=== PATIENT | male | born 1960 | race African-American/Black ===

== ENCOUNTER 2017-09-26 12:25 | Outpatient (CLI) | payer MEDICARE | END 2017-09-26 12:26 | disposition home or self-care (01) | LOC: BICRAD 12:25 | PROVIDERS: ATTEND Internal Medicine | DX: M47.27 Other spondylosis with radiculopathy, lumbosacral region (principal); M54.9 Dorsalgia, unspecified | CPT/HCPCS: 72040; 72100 ==

== ENCOUNTER 2017-12-06 08:02 | Outpatient (CLI) | payer MEDICARE, MEDICAID | END 2017-12-06 08:03 | disposition home or self-care (01) | LOC: BICMRI 08:02 | PROVIDERS: ATTEND Neurological Surgery | DX: M47.892 Other spondylosis, cervical region (principal); Q76.2 Congenital spondylolisthesis; M51.26 Other intervertebral disc displacement, lumbar region; M99.83 Other biomechanical lesions of lumbar region; M99.81 Other biomechanical lesions of cervical region; M48.8X2 Other specified spondylopathies, cervical region | CPT/HCPCS: 72141; 72148 ==

== ENCOUNTER 2018-03-11 18:02 | Inpatient (IN) | payer MEDICARE, MEDICAID ==
[2018-03-11 18:37] LABS: Bilirubin Negative (Negative); Blood, Urine Trace (Negative); Clarity CLEAR (Clear); Glucose, Urine (Dipstick) >=1000 mg/dL (Negative); Leukocyte Negative (Negative); Nitrite Negative (Negative); Protein, Urine (Dipstick) Negative (Neg-Trace); Specific Gravity, Urine 1.027 (1.002-1.036); Urobilinogen 0.2 mg/dL (0.2-1.0)
[2018-03-11 18:40] LABS: Bacteria/HPF None Seen HPF (None Seen); Hyaline Casts/LPF 0-3 HYALINE CAST LPF (0-3 Hyaline); RBC/HPF 0-3 HPF (0-3); Squamous Epithelial None Seen HPF (0-3); WBC/HPF None Seen HPF (0-3)
[2018-03-11 19:05] LABS: #Lymphocytes 0.5 thou/uL (1.20-3.40); #Monocytes 0.2 thou/uL (0.11-0.59); #Neutrophils 1.5 thou/uL (1.40-6.50); %Basophils 0.5 % (0.0-1.0); %Eosinophils 0.9 % (0.0-10.0); %Lymphocytes 22.8 % (21.0-51.0); %Monocytes 6.8 % (0.0-10.0); Mean Corpuscular HGB CONC 33.6 g/dL (32.0-36.0); Mean Corpuscular Hemoglobin 28.1 pg (27.0-31.0); Mean Corpuscular Volume 83.9 fL (78.0-98.0); Mean Platelet Volume 12.6 fL (7.4-10.4); Platelet Count 167 thou/uL (130-400); Red Blood Cell (RBC) Count 4.61 mill/uL (4.70-6.10); White Blood Cell (WBC) Count 2.2 thou/uL (4.8-10.8)
[2018-03-11 19:09] LABS: CKMB 0.6 ng/mL (0-6.6); Troponin I Less than 0.010 ng/mL (< 0.028)
[2018-03-11 20:18] LABS: Base Excess-Venous -6.7 mmol/L (0 (+/- 2.5)); Bicarbonate (HCO3v) 18.2 mmol/L (1.0-85.0); CO2 Tension (PvCO2) 34.3 mmHg (41.0-51.0); Calcium, Ionized 1.14 mmol/L (1.12-1.32); Hemoglobin - Calc 15.7 g/dL (12.0-18.0); Lactate 1.11 mmol/L (0.50-2.20); O2 Tension (PvO2) 63.4 mmHg (35.0-45.0); Potassium 5.5 mmol/L (3.4-4.7); T. Carbon Dioxide 19.2 mmol/L (1.0-85.0); pH (Venous) 7.333 (7.35-7.45); vO2 Saturation-calc 90.6 % (94-98)
[2018-03-11 21:05] LABS: Albumin 3.8 g/dL (3.5-5.0); Bilirubin, Total 0.6 mg/dL (0.2-1.2)
[2018-03-11 21:07] LABS: Calc. Creatinine Clearance 0 mL/min (70-130); Estimated GFR-MDRD 61
[2018-03-11 21:08] LABS: Chloride 98 mmol/L (98-107); Glucose 450 mg/dL (70-105); Sodium 127 mmol/L (136-145)
[2018-03-11 21:09] LABS: BUN (Urea Nitrogen) 19 mg/dL (8.4-25.7); Carbon Dioxide 12 mmol/L (22-29)
[2018-03-11 21:10] LABS: Calcium 8.5 mg/dL (7.8-10.44); Globulin 4.7 g/dL (2.4-3.5); Protein, Total 8.5 g/dL (6.0-8.3)
[2018-03-11 21:11] LABS: Alkaline Phosphatase 71 U/L (40-150)
[2018-03-11 21:12] LABS: ALT (SGPT) 59 U/L (8-55); AST (SGOT) 136 U/L (5-34)
[2018-03-11 21:21] LABS: CK (CPK) 20 U/L (30-200); Lipase 62 U/L (8-78)
[2018-03-11] MEDS ORDERED: Insulin Regular 300 UNITS/3 ML VIAL ONE (21:23)
[2018-03-11] MEDS ORDERED: Simvastatin 40 MG TAB PO SCH (23:45)
[2018-03-11] MEDS ORDERED: traZODone HCl 50 MG TAB PO SCH (23:45)
[2018-03-11] MEDS ORDERED: Lisinopril/Hydrochlorothiazide 20 mg/12.5 mg Tablet PO SCH (23:45)
[2018-03-11] MEDS ORDERED: Insulin Regular 300 UNITS/3 ML VIAL SC PRN (23:56)
[2018-03-11] MEDS ORDERED: Dextrose 5% in Water 1,000 ML IV PRN (23:56)
[2018-03-11] MEDS ORDERED: hydrALAZINE 20 MG/ML VIAL SLOW IVP PRN (23:56)
[2018-03-11] MEDS ORDERED: Dextrose 50% Abboject 50 ML SYRINGE IVP PRN (23:56)
[2018-03-12] MEDS ORDERED: Acetaminophen/Codeine 30-300mg Tablet PO PRN (00:03)
[2018-03-12 00:29] VITALS: BMI 23.4
[2018-03-12] MEDS: Insulin Regular 300 UNITS/3 ML VIAL SC PRN ×2 (05:14→11:06)
[2018-03-12 06:36] LABS: Anion Gap 21 mmol/L (10-20); BUN (Urea Nitrogen) 20 mg/dL (8.4-25.7); Calc. Creatinine Clearance 60 mL/min (70-130); Calcium 9.3 mg/dL (7.8-10.44); Carbon Dioxide 12 mmol/L (22-29); Cardiac Risk 26.3 (Less than 4.5); Chloride 99 mmol/L (98-107); Cholesterol 368 mg/dl (< 200 Desired); Estimated GFR-MDRD 74; Glucose 380 mg/dL (70-105); HDL Cholesterol 14 mg/dL (>60 Neg Risk); Potassium 4.2 mmol/L (3.5-5.1); Sodium 128 mmol/L (136-145)
[2018-03-12 06:38] LABS: Triglycerides 2622 mg/dL (Less than 150)
[2018-03-12] MEDS ORDERED: metFORMIN 500 MG TAB PO SCH (08:00)
[2018-03-12] MEDS: Aripiprazole 15 MG TAB PO SCH (08:19)
[2018-03-12 10:57] LABS: Potassium, Urine 10.7 mmol/L
[2018-03-12] MEDS ORDERED: Sodium Chloride 0.9% 1,000 ML IV SCH (11:15)
[2018-03-12] MEDS ORDERED: Glimepiride 4 MG TAB PO SCH (11:30)
[2018-03-12] MEDS ORDERED: Insulin Regular 300 UNITS/3 ML VIAL SC PRN (11:32)
[2018-03-12 12:58] LABS: Amphetamine Not Detected (NotDetected); Barbiturates Screen Not Detected (NotDetected); Benzodiazepine Screen Not Detected (NotDetected); Cocaine Metabolite Screen Not Detected (NotDetected); Medtox Control Line Valid? VALID (VALID); Medtox Reader # READER 1; Methadone Not Detected (NotDetected); Methamphetamine Not Detected (NotDetected); Opiate Screen Detected (NotDetected); Oxycodone Screen Not Detected (NotDetected); Phencyclidine (PCP) Not Detected (NotDetected); THC/Cannabinoid Screen Not Detected (NotDetected); Tricyclic Screen Not Detected (NotDetected)
--- NOTE | 2018-03-12 14:55 | RAD ---
UPRIGHT FRONTAL CHEST RADIOGRAPH: DATE: 03/12/2018. COMPARISON: None. HISTORY: Hyponatremia and hyperglycemia. FINDINGS: No pneumothorax, pleural fluid, focal consolidation, or alveolar edema. Heart and mediastinal contou rs unremarkable. IMPRESSION: No acute findings. POS: [facility]
[2018-03-12 19:25] LABS: Anion Gap 20 mmol/L (10-20); BUN (Urea Nitrogen) 18 mg/dL (8.4-25.7); Calc. Creatinine Clearance 56 mL/min (70-130); Calcium 9.2 mg/dL (7.8-10.44); Carbon Dioxide 16 mmol/L (22-29); Chloride 98 mmol/L (98-107); Estimated GFR-MDRD 69; Glucose 549 mg/dL (70-105); Potassium 4.3 mmol/L (3.5-5.1); Sodium 130 mmol/L (136-145)
[2018-03-12] MEDS ORDERED: Insulin Regular 100 units/100 ml in NS IVPB SCH (19:30)
[2018-03-12] MEDS ORDERED: Lisinopril/Hydrochlorothiazide 20 mg/12.5 mg Tablet PO SCH (21:00)
[2018-03-12] MEDS ORDERED: Sodium Chloride 0.9% 1,000 ML IV PRN ×4 (21:13)
[2018-03-12] MEDS ORDERED: Potassium Phosphate 9 MMOL in Sodium Chloride 0.9% 100 ML IVPB PRN (21:13)
[2018-03-12] MEDS ORDERED: Magnesium 2 GM/NS 0.9% 100 ML 2 GM in Premix Bag 1 BAG IVPB PRN (21:13)
[2018-03-12] MEDS ORDERED: Magnesium Oxide 400 MG TAB PO PRN ×2 (21:13)
[2018-03-12] MEDS ORDERED: D5 1/2 NS w/20 mEq KCL 1,000 ML IV PRN (21:13)
[2018-03-12] MEDS ORDERED: CCU ELECTROLYTE REPLACEMENT PROTOCOL FS PRN (21:13)
[2018-03-12] MEDS ORDERED: Potassium Chloride 40 MEQ in Sodium Chloride 0.9% 250 ML 250 ML IVPB PRN (21:13)
[2018-03-12] MEDS ORDERED: Potassium Chloride 40 MEQ in Premix Bag 1 BAG IVPB PRN (21:13)
[2018-03-12] MEDS ORDERED: NS 0.9% w/ 20 MEQ KCL 1,000 ML/1,000 ML BAG IV PRN (21:13)
[2018-03-12] MEDS ORDERED: Potassium Chloride 20 MEQ TAB PO PRN (21:13)
[2018-03-12] MEDS ORDERED: Potassium Phosphate 15 MMOL in Sodium Chloride 0.9% 250 ML 250 ML IV PRN (21:13)
[2018-03-12] MEDS ORDERED: Dextrose 5 %-0.45 % NaCl 1,000 ML IV PRN (21:13)
[2018-03-12] MEDS ORDERED: Potassium Phosphate 12 MMOL in Sodium Chloride 0.9% 250 ML 250 ML IV PRN (21:13)
[2018-03-12] MEDS ORDERED: ADD ELECTROLYTE REPLACEMENT SET TO PROFILE FS SCH (21:15)
[2018-03-12] MEDS: NS 0.9% w/ 20 MEQ KCL 1,000 ML/1,000 ML BAG IV PRN (21:30)
[2018-03-12] MEDS: Lisinopril 20 MG TAB PO SCH (21:31)
[2018-03-12] MEDS: Simvastatin 40 MG TAB PO SCH (21:33)
[2018-03-12] MEDS: traZODone HCl 50 MG TAB PO SCH (21:33)
[2018-03-12] MEDS: Melatonin 3 MG TAB PO SCH (21:33)
[2018-03-12 23:37] LABS: Anion Gap 14 mmol/L (10-20); BUN (Urea Nitrogen) 16 mg/dL (8.4-25.7); Calc. Creatinine Clearance 71 mL/min (70-130); Carbon Dioxide 18 mmol/L (22-29); Chloride 104 mmol/L (98-107); Estimated GFR-MDRD 90; Glucose 403 mg/dL (70-105); Potassium 4.3 mmol/L (3.5-5.1); Sodium 132 mmol/L (136-145)
[2018-03-13] MEDS: NS 0.9% w/ 20 MEQ KCL 1,000 ML/1,000 ML BAG IV PRN (01:06)
[2018-03-13 04:30] LABS: Hemoglobin A1c 11.9 % (4.0-6.0)
[2018-03-13 04:36] LABS: Anion Gap 12 mmol/L (10-20); BUN (Urea Nitrogen) 12 mg/dL (8.4-25.7); Calc. Creatinine Clearance 89 mL/min (70-130); Calcium 8.7 mg/dL (7.8-10.44); Carbon Dioxide 20 mmol/L (22-29); Chloride 109 mmol/L (98-107); Estimated GFR-MDRD Greater than 90; Glucose 160 mg/dL (70-105); Potassium 3.7 mmol/L (3.5-5.1); Sodium 137 mmol/L (136-145)
[2018-03-13] MEDS ORDERED: Glimepiride 4 MG TAB PO SCH (07:30)
--- NOTE | 2018-03-13 08:26 | HP ---
DATE OF ADMISSION: 03/11/2018 REASON FOR ADMISSION AND CHIEF COMPLAINT: Weakness and elevated blood sugar. HISTORY OF PRESENT ILLNESS: Mr. Bob is a 57-year-old male with past medical history of diabetes mellitus, hypertension and bipolar disorder, came because of elevated blood sugar and feeling weak. Patient says he has not been compliant with diet for the last few weeks. A few months ago, his diabetes was well controlled when he was taking medicines and he was compliant with diet. Patient takes medication for his bipolar, has not been following the diet as said, started feeling very weak, but no dizziness, no chest pain, no shortness of breath, no fever. Patient came to the emergency room because of the symptoms, they called EMS. EMS found the patient with blood sugar of more than 500. He states his blood sugars have been high for the last 1 week. Patient was started on IV fluids normal saline on the way to the hospital. In the ER, patient was evaluated and found to have elevated blood pressure of 190/107. Patient given a dose of Novolin insulin, because he was also found to have hyponatremia. His blood sugar still remained around 400 , so he is being admitted for further evaluation and management. PAST MEDICAL HISTORY: 1. Diabetes mellitus. 2. Hypertension. 3. Hyperlipidemia. 4. Bipolar disorder causing very depression. 5. Chronic back pain. PAST SURGICAL HISTORY: Nothing significant. CURRENT MEDICATIONS: Patient is on metformin 1000 mg daily, lisinopril/ hydrochlorothiazide 20/12.5 daily, simvastatin 40 mg daily, Abilify 15 mg daily , trazodone 100 mg at bedtime. FAMILY HISTORY: Nothing of interest. SOCIAL HISTORY: Patient lives with family. No history of alcohol use. No history of drug use. Smokes one pack a day. REVIEW OF SYSTEMS: Cardiovascular: No chest pain. No shortness of breath. Respiratory: No fever or cough. Gastrointestinal: No nausea or vomiting. No abdominal pain. Genitourinary: No dysuria or hematuria. Central nervous system: No headache, no dizziness. PHYSICAL EXAMINATION: GENERAL: Patient is alert, awake, oriented x3. VITAL SIGNS: Temperature 98, pulse 70, respirations 20, blood pressure initially 217/98, but came down to 130/60 after medication. HEENT: Head is normocephalic, atraumatic. Pupils are equal and reactive to light. Nasopharynx is pale and dry. Hard and soft palate, no lesions seen. SKIN: Turgor decreased. NECK: Supple. No JVD. LUNGS: Bilateral air entry present, no rales, no rhonchi. CARDIAC: S1, S2 regular. ABDOMEN: Soft, no distention, no tenderness. Normal bowel sounds present. RECTAL: Deferred. CENTRAL NERVOUS SYSTEM: No focal deficits. LABORATORY DATA AND X-RAY FINDINGS: CBC shows WBC 2.3, hemoglobin 13, hematocrit of 38, platelets 167. ABG showed pH 7.33, pCO2 of 34, PO2 of 63, saturation 90%. Metabolic panel: Sodium 128, potassium 4.3, chloride 99, CO2 of 12, BUN 20, creatinine 1.2, glucose 380. Urinalysis negative. Urine drug screen positive for opiates. Chest x-ray negative. EKG, normal sinus rhythm, no acute ST-T wave changes seen. ASSESSMENT: 1. Diabetic keto acidosis 2. Hypertension, uncontrolled 3. Generalized weakness. 4. Chronic back pain. 5. Bipolar disorder. 6. Noncompliant with diet. PLAN: 1. Vital signs q.4 hours. 2. Activity: As tolerated. 3. Allergies: No known drug allergies. 4. IV fluids: Normal saline at 100 mL per hour. 5. Continue home medication. 6. DKA protocol 7. We will repeat base met now. MTDD
[2018-03-13] MEDS: Aripiprazole 15 MG TAB PO SCH (08:53)
[2018-03-13] MEDS: metFORMIN 500 MG TAB PO SCH ×2 (08:53→16:56)
[2018-03-13] MEDS: Lisinopril 20 MG TAB PO SCH ×2 (08:53→22:31)
[2018-03-13] MEDS: Insulin Regular 300 UNITS/3 ML VIAL SC PRN (12:18)
[2018-03-13] MEDS: Simvastatin 40 MG TAB PO SCH (22:31)
[2018-03-13] MEDS: traZODone HCl 50 MG TAB PO SCH (22:32)
[2018-03-13] MEDS: Melatonin 3 MG TAB PO SCH (22:32)
[2018-03-13 23:52] LABS: Glucose 401 mg/dL (70-105)
[2018-03-14 05:04] LABS: #Lymphocytes 0.4 thou/uL (1.20-3.40); #Monocytes 0.1 thou/uL (0.11-0.59); #Neutrophils 0.7 thou/uL (1.40-6.50); %Eosinophils 2.6 % (0.0-10.0); %Monocytes 9.6 % (0.0-10.0); %Neutrophils 59.8 % (42.0-75.0); Hemoglobin 11.5 g/dL (14.0-18.0); Hypochromia SLIGHT = 6-15 cells (100X) (0-5/hpf); Lymphocytes 33 % (21-51); MDiff Complete? YES; Mean Corpuscular HGB CONC 33.2 g/dL (32.0-36.0); Mean Corpuscular Hemoglobin 27.9 pg (27.0-31.0); Mean Corpuscular Volume 84.1 fL (78.0-98.0); Mean Platelet Volume 9.8 fL (7.4-10.4); Neutrophil 63 % (42-75); PLT Morphology Comment Appears Decreased; Platelet Count 65 thou/uL (130-400); RBC Distribution Width 14.5 % (11.5-14.5); RBC Morphology Normal; Reactive Lymphocytes 4 % (0-10); Red Blood Cell (RBC) Count 4.12 mill/uL (4.70-6.10); White Blood Cell (WBC) Count 1.2 thou/uL (4.8-10.8)
[2018-03-14 05:12] LABS: Anion Gap 12 mmol/L (10-20); BUN (Urea Nitrogen) 8 mg/dL (8.4-25.7); Calc. Creatinine Clearance 84 mL/min (70-130); Calcium 8.6 mg/dL (7.8-10.44); Carbon Dioxide 22 mmol/L (22-29); Chloride 103 mmol/L (98-107); Estimated GFR-MDRD Greater than 90; Glucose 338 mg/dL (70-105); Potassium 4.6 mmol/L (3.5-5.1); Sodium 132 mmol/L (136-145)
[2018-03-14] MEDS: glipiZIDE 5 MG TAB PO SCH ×2 (07:56→17:31)
[2018-03-14] MEDS: metFORMIN 500 MG TAB PO SCH ×2 (07:56→17:31)
[2018-03-14] MEDS: Lisinopril 20 MG TAB PO SCH ×2 (07:56→20:45)
[2018-03-14] MEDS: Aripiprazole 15 MG TAB PO SCH (07:57)
[2018-03-14 08:30] LABS: Glucose 433 mg/dL (70-105)
[2018-03-14] MEDS: Insulin Glargine 20 UNITS in Pre-Filled Syringe 1 EACH SC SCH (09:31)
[2018-03-14 12:32] LABS: Glucose 418 mg/dL (70-105)
[2018-03-14] MEDS: Insulin Regular 300 UNITS/3 ML VIAL SC PRN ×3 (12:40→21:11)
[2018-03-14 17:18] LABS: Glucose 301 mg/dL (70-105)
[2018-03-14] MEDS: Dicyclomine 20 MG TAB PO PRN (17:31)
[2018-03-14] MEDS: Simvastatin 40 MG TAB PO SCH (20:45)
[2018-03-14] MEDS: Melatonin 3 MG TAB PO SCH (20:45)
[2018-03-14] MEDS: traZODone HCl 50 MG TAB PO SCH (20:45)
[2018-03-14 21:00] LABS: Glucose 330 mg/dL (70-105)
[2018-03-15 05:11] LABS: #Lymphocytes 0.3 thou/uL (1.20-3.40); #Monocytes 0.2 thou/uL (0.11-0.59); #Neutrophils 0.8 thou/uL (1.40-6.50); %Basophils 1.6 % (0.0-1.0); %Eosinophils 1.7 % (0.0-10.0); %Lymphocytes 23.6 % (21.0-51.0); %Monocytes 14.8 % (0.0-10.0); %Neutrophils 58.4 % (42.0-75.0); Hemoglobin 11.4 g/dL (14.0-18.0); Mean Corpuscular HGB CONC 33.3 g/dL (32.0-36.0); Mean Corpuscular Hemoglobin 28.1 pg (27.0-31.0); Mean Corpuscular Volume 84.4 fL (78.0-98.0); Mean Platelet Volume 9.8 fL (7.4-10.4); Platelet Count 60 thou/uL (130-400); RBC Distribution Width 14.7 % (11.5-14.5); Red Blood Cell (RBC) Count 4.06 mill/uL (4.70-6.10); White Blood Cell (WBC) Count 1.3 thou/uL (4.8-10.8)
[2018-03-15 05:17] LABS: Anion Gap 15 mmol/L (10-20); BUN (Urea Nitrogen) 8 mg/dL (8.4-25.7); Calc. Creatinine Clearance 74 mL/min (70-130); Calcium 8.9 mg/dL (7.8-10.44); Carbon Dioxide 23 mmol/L (22-29); Chloride 104 mmol/L (98-107); Estimated GFR-MDRD 88; Glucose 370 mg/dL (70-105); Potassium 4.1 mmol/L (3.5-5.1); Sodium 138 mmol/L (136-145)
[2018-03-15] MEDS: Insulin Regular 300 UNITS/3 ML VIAL SC PRN ×4 (05:45→21:26)
[2018-03-15 07:45] LABS: Glucose 358 mg/dL (70-105)
[2018-03-15] MEDS: Aripiprazole 15 MG TAB PO SCH (08:13)
[2018-03-15] MEDS: metFORMIN 500 MG TAB PO SCH ×2 (08:13→17:29)
[2018-03-15] MEDS: glipiZIDE 5 MG TAB PO SCH ×2 (08:14→17:29)
[2018-03-15] MEDS: Lisinopril 20 MG TAB PO SCH ×2 (08:14→21:24)
[2018-03-15] MEDS: Insulin Glargine 20 UNITS in Pre-Filled Syringe 1 EACH SC SCH (08:14)
[2018-03-15] MEDS ORDERED: Insulin Glargine 20 UNITS in Pre-Filled Syringe 1 EACH SC SCH (10:15)
--- NOTE | 2018-03-15 11:06 | CON ---
DATE OF CONSULTATION: 03/15/2018 REASON FOR CONSULTATION: Pancytopenia. HISTORY: This is a 57-year-old male with no known prior history of blood disorders. He moved to this area approximately a year ago and has not seen any doctors locally. He was hospit alized yesterday with weakness and hyperglycemia. LABORATORY AND X-RAY FINDINGS: CBC showed WBC of 2200 with hemoglobin of 13 grams and platelet count of 167,000. This showed on 03/11/2018. The CBC on 03/15/2018 showed WBC of 1.3 with hemoglobin of 11.4 and platelet count of 60,000. Platelet count was 65,000 on 03/14/2018. Differential shows 58.4 % neutrophils with 23.6% lymphocytes, 14.8% monocytes, 1.7% eosinophils. The patient has not been ge tting any heparin in the hospital. He has been afebrile throughout his hospital stay. His blood sug ar has been poorly controlled. CURRENT MEDICATIONS: Abilify 15 mg p.o. daily, Bentyl 20 mg p.o. t.i.d. p.r.n., glipizide 5 mg p.o. b.i.d., hydralazine 20 mg IV q.6. hours p.r.n., insulin, lisinopril, melatonin, metformin, simvastati n and trazodone. SOCIAL HISTORY: The patient used to drink a lot in the past. He quit about 6 months ago. PAST MEDICAL HISTORY: Diabetes, hypertension, hyperlipidemia, bipolar disorder, alcohol abuse and ch ronic back pain. PERSONAL, FAMILY AND SOCIAL HISTORY: The patient lives by himself in [place]. He has been living th [facility] for about a year. He smokes a pack of cigarettes a day. PHYSICAL EXAMINATION: HEENT: Unremarkable. EYES: Extraocular movements intact. Pupils equal in size. NECK: No thyromegaly. LYMPH NODES: Not palpable in cervical, supraclavicular, axillary and inguinal areas. SKIN: No petechiae. No purpuric spots. CHEST: No deformity. Percussion notes equal bilaterally. Breath sounds vesicular without rales or rhonchi or pleural rub. CARDIOVASCULAR SYSTEM: PMI not displaced. Rhythm regular. S1, S2 normal. No murmur or pericardial rub. ABDOMEN: Soft. No hepatosplenomegaly. No other masses were palpable. No ascites. Bowel sounds no rmal. SPINE: No deformity or tenderness. EXTREMITIES: No calf tenderness. LABORATORY DATA: CBC as per HPI. Chemistry profile is remarkable for elevated sugar around 400. To tony bilirubin 0.6, AST 136, ALT 59, alkaline phosphatase 71, total protein 8.5 with a globulin of 4.7 , albumin of 3.8. Chest x-ray was negative. ASSESSMENT AND RECOMMENDATIONS: This patient has significant thrombocytopenia and leukopenia with hi story of alcohol abuse or alcohol-induced liver disease with hypersplenism is likely explanation. He will be investigated further with ultrasound of the abdomen. I will also order additional studies t o rule out collagen vascular disease. Because he had elevated globulin, serum protein electrophoresi s will be ordered. Thanks very much for allowing me to participate in the care of this patient. He should have periodic CBC on an outpatient basis.
[2018-03-15 12:38] LABS: Glucose 349 mg/dL (70-105)
[2018-03-15 13:59] LABS: Hep C IgG Ab Reflex HepC Qnt (NonReactive); Hep C Index 7.11 S/CO (0-0.79)
[2018-03-15 17:44] LABS: Glucose 300 mg/dL (70-105)
[2018-03-15] MEDS: Bismuth Subs 17.5mg/mL Susp 120 ML BOT PO PRN (18:36)
[2018-03-15 21:22] LABS: Glucose 274 mg/dL (70-105)
[2018-03-15] MEDS: Dicyclomine 20 MG TAB PO PRN (21:24)
[2018-03-15] MEDS: traZODone HCl 50 MG TAB PO SCH (21:25)
[2018-03-15] MEDS: Simvastatin 40 MG TAB PO SCH (21:25)
[2018-03-15] MEDS: Melatonin 3 MG TAB PO SCH (21:25)
[2018-03-16 07:39] LABS: Glucose 177 mg/dL (70-105)
--- NOTE | 2018-03-16 08:08 | ULT ---
ULTRASOUND ABDOMEN COMPLETE HISTORY: Hepatosplenomegaly with abdominal pain. TECHNIQUE: Walter-scale ultrasound evaluation of the liver, gallbladder, spleen, pancreas, common bile duct, kidne ys, abdominal aorta, and inferior vena cava (IVC). FINDINGS: There is prominent size of the liver. The liver demonstrates a nodular contour. No discrete hepatic lesion is evident. There is enlargement of the spleen with a length greater than 17 cm demonstrated . Visualized aorta reveals no evidence of aneurysmal dilatation. There is gallbladder wall thickeni ng and pericholecystic fluid indicating cholecystitis. No discrete shadowing calculi are seen. Murp hy's sign is reported as positive by tool engineer. The common duct is normal measuring 4 mm. Pancrea s is partially obscured from view by bowel content which limits assessment. No overt hydronephrosis of the kidneys. IMPRESSION: 1. Sonographic finding indicate cholecystitis. Recommend clinical correlation in this regard. Ther e is no shadowing cholelithiasis. 2. Hepatosplenomegaly. POS: [facility]
[2018-03-16] MEDS: metFORMIN 500 MG TAB PO SCH ×2 (09:00→17:53)
[2018-03-16] MEDS: Insulin Glargine 40 UNITS in Pre-Filled Syringe 1 EACH SC SCH (09:00)
[2018-03-16] MEDS: Aripiprazole 15 MG TAB PO SCH (09:00)
[2018-03-16] MEDS: Lisinopril 20 MG TAB PO SCH ×2 (09:00→19:58)
[2018-03-16] MEDS: glipiZIDE 5 MG TAB PO SCH ×2 (09:01→17:53)
[2018-03-16 10:41] LABS: INR-International Normal Ratio 1.2
--- NOTE | 2018-03-16 11:43 | PRG ---
DATE OF SERVICE: 03/16/2018 This is a cross coverage note for Dr. Fady Rose. SUBJECTIVE: This is a 57-year-old gentleman being seen for weakness and elevated blood sugar. The p atient denies any nausea, vomiting, or chest pain. PHYSICAL EXAMINATION: GENERAL: Patient is awake, alert. VITAL SIGNS: Afebrile, pulse 76, breathing at 16, blood pressure 137/77. GENERAL APPEARANCE AND MENTAL STATUS: Fair. HEAD/NECK: Normocephalic. Atraumatic. EYES: EOMI. No deformity. EARS: Clear. No ulcers. NOSE: Intact. No lesions. MOUTH: Clear. No discharge. THROAT: Clear. No exudate. LUNGS: Clear. No crackles. CARDIAC: S1, S2. No rub. ABDOMEN: Benign. BS+. GENITALIA/RECTUM: Menezes absent. BACK/EXTREMITIES: Edema 0+ Ulcer-. NEUROLOGICAL: Alert and motor intact. SKIN: Rash- Bruise- LYMPHATICS: Edema- Ulcer-. LABORATORY DATA: Show sugar 177, creatinine 1.05. White count 1.3, platelet count 60. ASSESSMENT AND RECOMMENDATIONS: 1. Diabetic ketoacidosis, stable. 2. Weakness, due to uncontrolled diabetes mellitus. 3. Leukopenia. Hematology evaluation noted. 4. Hypertension, stable. 5. changes. GI has been consulted.
[2018-03-16] MEDS: Piperacillin/Tazobactam 3.375 GM in Sodium Chloride 0.9% 100 ML IVPB SCH ×2 (12:52→17:53)
--- NOTE | 2018-03-16 13:14 | CON ---
DATE OF CONSULTATION: 03/16/2018 REASON FOR CONSULT: Potential cholecystitis. HISTORY OF PRESENT ILLNESS: This is a 57-year-old male who presents with abnormal cell count as well as high blood sugars, who had ultrasound yesterday for further workup of his thrombocytopenia. This ultrasound showed gallbladder that had no stones, but gallbladder wall thickening, pericholecystic f luid. The patient denies any abdominal pain. No known previous history of gallstones, jaundice, hooker creatitis or cirrhosis. No prior known history of hematologic disorder. Patient is a former heavy d christiana, quit most recently a few months ago. He states that he had stopped for a while, but then dri nk heavily up to 2 months ago, never known to have jaundice in the past. He denies history of varice al bleeding or ascites. PAST MEDICAL HISTORY: Includes diabetes, hypertension, hyperlipidemia, bipolar, alcohol abuse. PAST SURGICAL HISTORY: He denies. MEDICINES: See list. ALLERGIES: No known drug allergies. SOCIAL HISTORY: Former heavy drinker. Nothing currently. No other drugs. REVIEW OF SYSTEMS: Ten system review of systems otherwise negative unless described above. PHYSICAL EXAMINATION: VITAL SIGNS: Blood pressure is 137/77, pulse 76, respirations 17. He is afebrile. HEENT: Sclerae are anicteric. Oropharynx clear. NECK: No lymphadenopathy. CHEST: Clear. HEART: Regular rate and rhythm. ABDOMEN: Soft, nontender, nondistended, no guarding or rebound. LABORATORY DATA: White blood cell count is 1.3, hemoglobin is 11, platelet count is 60. INR is 1.2. LFTs were elevated, but the bilirubin was normal previously. IMAGING: Ultrasound shows gallbladder wall thickening, normal common bile duct, pericholecystic flui d, but no gallstones and hepatosplenomegaly with nodular contour of liver. ASSESSMENT: 1. Symptoms of thrombocytopenia, anemia and leukopenia of an uncertain etiology. Dr. Colmenares is se eing as well. 2. History of heavy alcohol abuse, which could raise the possibility of cirrhosis of the liver, chantelle cially with nodular findings on ultrasound. 3. Gallbladder wall thickening, pericholecystic fluid that can be seen and explained by portal hyper tension in his case, especially without stones. PLAN: I see no indication for cholecystectomy. I think he needs further workup from a liver standpo int for the true etiology of this hepatosplenomegaly associated with low cell counts. He can reconsu lt if needed; however, I doubt that he needs cholecystectomy at this time.
--- NOTE | 2018-03-16 18:06 | PRG ---
DATE OF SERVICE: 03/16/2018 This patient's ultrasound of the abdomen showed hepatosplenomegaly with nodular appearance of the tyler er. The spleen measured 17 cm in size. It seems Hep C antibody is reported high. The report is not quite obvious, but it seems has reflexed 2 quantitative testing. As far as anemia and thrombocytopen ia is concerned, he should be followed with periodic CBC. GI consultation should be requested for ev aluation of hepatic pathology. He does not need regular Hematology followup. Thanks very much for allowing me to participate in this patient's care.
--- NOTE | 2018-03-16 18:18 | CON ---
DATE OF CONSULTATION: 03/16/2018 REASON FOR CONSULTATION: Possible cirrhosis. CONSULTING PHYSICIAN: Fady Rose M.D. HISTORY OF PRESENT ILLNESS: The patient is a 57-year-old -[place] male with past medical his tory of diabetes, hypertension, hyperlipidemia, bipolar disorder, chronic lower back pain, and possib le hepatitis B infection who initially presented to the hospital with complaints of hyperglycemia and generalized weakness. Upon speaking with the patient, he noted that he had been having increased bl ood sugars recently and had been having increased difficulty obtaining the fingerstick blood sugars d ue to increased pain in his fingers with his higher blood sugars and also was associated with increas ed generalized weakness that ultimately brought him to the hospital for further evaluation. However, he also endorsed mild abdominal cramping located in the midepigastric region that would occur once m onthly. It usually occur right before eating, was nonradiating and would reach a severity of approxi mately 6/10. This pain would get better with taking Pepto-Bismol with eating food, but also with ind ucing vomiting, and the pain would last for approximately 30 minutes with spontaneous resolution. Th ere were no clear exacerbating factors other than increased fasting states. Otherwise, the patient d id endorse an episode of hematochezia characterized as bright red blood per rectum approximately 2 we eks ago with only a little bit of blood present on the toilet paper, not mixed in with the stool. Th is episode did not recur, and he has had no further episodes of hematochezia since that time. Curren tly, he denies any nausea, vomiting, fevers, chills, abdominal pain, GI bleeding, dysphagia, odynopha radha, change in stool caliber, weight loss, diarrhea, or constipation. Of note, the patient states that he was diagnosed with chronic hepatitis B infection approximately 10 -20 years ago but was not treated for this particular condition. He endorses the prior use of nasal cocaine as well as does have some homemade tattoos and had approximately 30 lifetime sexual partners and did not practice safe sex practices with his sexual encounters. He also endorses a history of he brandon alcohol abuse where he would drink approximately one bottle of liquor on the weekends and was doi ng so for approximately 10-15 years total. His last colonoscopy was approximately 3-4 years ago and was normal. He denies any family history of colon polyps or colon cancer. REVIEW OF SYSTEMS: A 10-category review of systems was obtained with all responses negative except f or the pertinent positives as listed in the HPI. PAST MEDICAL HISTORY: As per HPI. PAST SURGICAL HISTORY: None. FAMILY HISTORY: Denies any GI malignancy. SOCIAL HISTORY: Denies any alcohol or illicit drug use. Smokes approximately 1 pack per day. OUTPATIENT MEDICATIONS: Reviewed. ALLERGIES: No known drug allergies. PHYSICAL EXAMINATION: VITAL SIGNS: Temperature of 98.1, pulse 76, blood pressure 137/77, respiratory rate 17, satting 94% on room air. GENERAL: The patient is lying in bed in no acute distress. Alert and oriented x4. NECK: Supple. No JVD noted. No scleral icterus noted either. CARDIOVASCULAR: Regular rate and rhythm with no discernible murmurs, gallops or rubs. LUNGS: Clear to auscultation bilaterally with no discernible wheezes or rales. ABDOMEN: Normoactive bowel sounds, soft, nontender, nondistended. EXTREMITIES: No cyanosis, clubbing, or edema. LABORATORY DATA: CBC with a white blood cell count of 1.3, hemoglobin 11.4, hematocrit 34.3, platele ts 60. INR 1.2. Chemistry with a sodium of 138, potassium 4.1, chloride 104, CO2 of 23, BUN 8, crea tinine 1.05, glucose 370. AST on March 11, 2018, of 136, ALT 59, alkaline phosphatase 71, total b ilirubin 0.6. Abdominal ultrasound obtained on March 16, 2018, showed hepatomegaly with nodular c ontour to the liver itself, but no discrete hepatic lesion was evident. There was also splenomegaly noted as well as gallbladder wall thickening and minimal amounts of pericholecystic fluid, indicating possible cholecystitis. The common bile duct was normal at 4 mm. 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 Possible cirrhosis. The patient is initially presenting to the hospital with complaints of hyperglyc emia that had been relatively uncontrolled with oral antihyperglycemics and dietary modification. Ho wever, upon admission to the hospital, he did endorse the appearance of midepigastric abdominal pain that would occur prior to eating and that were alleviated with eating that was not consistent with a biliary type origin; however, he did have an abdominal ultrasound performed on March 16, 2018, whi ch showed gallbladder wall thickening and pericholecystic fluid concerning for possible cholecystitis . PHYSICAL EXAMINATION: Today, he does not exhibit any tenderness in the right upper quadrant, nor does his pain pattern adhe re to a biliary type pain, making acute cholecystitis less likely at this time. However, upon imagin g of his liver, he did have a nodular contour of the liver concerning for possible cirrhosis and when coupled with neutropenia and thrombocytopenia, it is definitely concerning for chronic liver disease and/or cirrhosis. He does have a history of hepatitis B infection (per patient) which could theoret ically contribute to a history of cirrhosis of her time; however, he does admit to a significant alco hol abuse history which could also generate cirrhotic morphology. At this point, he is presenting wi th possible cirrhosis with well compensated disease with a MELD score of 10 and Child-Osullivan classifica tion A. He currently does not endorse any sequelae of cirrhosis including encephalopathy, GI bleedin g, ascites or lower extremity edema. At this point, given his elevated LFTs and cirrhotic morphology on the liver, I would recommend a full liver workup for evaluation of possible etiology for cirrhosi s of the liver; however, this does not need to be performed as an inpatient and is usually relegated to the outpatient setting, especially in well compensated individuals. RECOMMENDATIONS: 1. We would recommend strict management of blood glucose while inpatient per primary team. 2. I will order a full liver workup to be obtained during this admission, so that the results would be available when seen in the outpatient setting. 3. While inpatient, I would draw a total bilirubin and INRs daily for evidence of any decompensation and/or liver failure. 4. Defer to the General Surgery Service for intervention regarding possible cholecystitis on abdomin al ultrasound. Given the well compensated nature of the patient, I will draw the labs for the liver workup here and follow the patient as an outpatient. I will sign off at this time. Please call with any additional questions.
[2018-03-16] MEDS: Melatonin 3 MG TAB PO SCH (19:58)
[2018-03-16] MEDS: traZODone HCl 50 MG TAB PO SCH (19:59)
[2018-03-16] MEDS: Simvastatin 40 MG TAB PO SCH (19:59)
[2018-03-16] MEDS: Bismuth Subs 17.5mg/mL Susp 120 ML BOT PO PRN (20:00)
[2018-03-17] MEDS: Piperacillin/Tazobactam 3.375 GM in Sodium Chloride 0.9% 100 ML IVPB SCH ×4 (00:18→17:10)
[2018-03-17] MEDS: Insulin Regular 300 UNITS/3 ML VIAL SC PRN ×2 (06:17→12:00)
[2018-03-17 07:18] LABS: Ferritin 121.97 ng/mL (22-322)
[2018-03-17 07:26] LABS: HBSAB Concentration 0.56 mIU/mL; HBSAg Index 0.19 S/CO (0-0.99); Hep B Core Total Ab Non-Reactive (NonReactive); Hep B Core Total Index 0.14 S/CO (0-0.79); Hep B Surf AB Non-Reactive (NonReactive); Hep B Surf Ag Non-Reactive S/CO (NonReactive)
[2018-03-17] MEDS: metFORMIN 500 MG TAB PO SCH ×2 (08:03→17:09)
[2018-03-17] MEDS: Lisinopril 20 MG TAB PO SCH ×2 (08:04→20:54)
[2018-03-17] MEDS: glipiZIDE 5 MG TAB PO SCH ×2 (08:04→17:10)
[2018-03-17] MEDS: Aripiprazole 15 MG TAB PO SCH (08:04)
[2018-03-17] MEDS: Insulin Glargine 40 UNITS in Pre-Filled Syringe 1 EACH SC SCH (08:41)
[2018-03-17] MEDS: Melatonin 3 MG TAB PO SCH (20:53)
[2018-03-17] MEDS: Simvastatin 40 MG TAB PO SCH (20:53)
[2018-03-17] MEDS: traZODone HCl 50 MG TAB PO SCH (20:54)
[2018-03-18] MEDS: Piperacillin/Tazobactam 3.375 GM in Sodium Chloride 0.9% 100 ML IVPB SCH ×3 (00:44→11:31)
[2018-03-18] MEDS: Insulin Regular 300 UNITS/3 ML VIAL SC PRN ×2 (05:45→12:40)
[2018-03-18] MEDS: glipiZIDE 5 MG TAB PO SCH ×2 (08:27→16:53)
[2018-03-18] MEDS: Aripiprazole 15 MG TAB PO SCH (08:28)
[2018-03-18] MEDS: Lisinopril 20 MG TAB PO SCH (08:28)
[2018-03-18] MEDS: metFORMIN 500 MG TAB PO SCH (08:28)
[2018-03-18] MEDS: Insulin Glargine 40 UNITS in Pre-Filled Syringe 1 EACH SC SCH (08:29)
[2018-03-18 12:07] LABS: HCV log10 6.823 (.); Hep C PCR-Quant 6660000 IU/mL (.)
--- NOTE | 2018-03-18 12:46 | CON ---
DATE OF CONSULTATION: 03/16/2018 REASON FOR CONSULTATION: Question regarding possibility of cholecystitis. HISTORY OF PRESENT ILLNESS: A 57-year-old with history of type 2 diabetes, hypertension, bipolar disorder, lives at home with family and developed a sensation of weakness, noticed that his blood sugars have been elevated and he decided to come for evaluation. He denies any headaches, no visual symptoms, no vomiting, no diarrhea, no genitourinary symptoms. Had what he describes as abdominal cramps in the upper abdominal area. The patient points at the epigastrium. In the emergency room, his blood pressure was 190/107. He was given insulin, iv fluids, admitted for further management and evaluation. PAST MEDICAL HISTORY: Type 2 diabetes, hypertension, hyperlipidemia, bipolar disorder, chronic back pain. PAST SURGICAL HISTORY: Negative. MEDICATIONS: Metformin, lisinopril, Zocor, Abilify, trazodone. FAMILY HISTORY: Noncontributory. SOCIAL HISTORY: Current smoker. Lives with family in [place]. PHYSICAL EXAMINATION: VITAL SIGNS: Temperature 98.8 Blood pressure is down to 130/80 , respirations 16, O2 sat 96% on room and pulse 72. SKIN: Normal. There is no lymphadenopathy. HEENT: Ocular movements conjugate. Oral cavity reveals missing teeth. Remainder ones with quite a bit of decay and gum disease. NECK: Supple, no jugular vein distention or carotid bruits. No thyromegaly. LUNGS: Symmetric with clear breath sounds. HEART: S1, S2, regular rate. ABDOMEN: Tenderness is identified in the right upper quadrant, which is mild to moderate. No rebound tenderness. No ascites. No abdominal distention, no organomegaly. GENITAL: Normal. EXTREMITIES: Pulses are 1+ in dorsalis pedis, no edema. Moves extremities equally. NEUROLOGIC: Plantar responses are flexor. No clonus. He is awake, oriented, follows commands. LABORATORY DATA AND IMAGING DATA: The white cell count 2.3, BUN 13, platelets 167. A pH of 7.33, pCO2 of 34, pO2 of 63. Sodium 128, potassium 4.3. Chest x- ray was unremarkable. Ultrasound of the abdomen showed enlargement of spleen and nodular liver contour and there is gallbladder wall thickening and pericholecystic fluid with possible cholecystitis. The follow up WBC count was 1.6 , hemoglobin 11.4, platelets 60,000. Hepatitis C antibody reflex positive. Chemistry with a creatinine 1.03, glucose 516, calcium 9.0, the AST was 136, ALT 59, alkaline phosphatase 71. Urinalysis was fairly unremarkable. ASSESSMENT: 1. Type 2 diabetes. 2. Likely chronic hepatitis C, associated with liver cirrhosis and hypersplenism with pancytopenia. 3. Hyperglycemia. 4. Weakness. 5. Equivocal findings on the gallbladder, radiology and clinical exam. DISCUSSION: It is likely that the patient has liver cirrhosis secondary to hepatitis C. The gallbladder and the clinical findings are equivocal and I believe the surgeon was not impressed and does not recommend a cholecystectomy at this point in time. It is more likely that he does not have acute cholecystitis. He does have some tenderness there. This will have to be revisited depending on clinical progress. He will need staging for his hepatitis C and submit hepatitis C genotype in preparation for treatment. The patient needs to be treated for hepatitis C to prevent the further progression of his liver disease. This will have to be done in the outpatient setting and I will be glad to follow him up in the clinic to set up his hepatitis C treatment. NINFA
[2018-03-18 16:32] VITALS: BP 154/83; TEMP 97.5
--- NOTE | 2018-03-18 17:30 | CON ---
DATE OF CONSULTATION: 03/16/2018 HISTORY OF PRESENT ILLNESS: A 57-year-old patient who has a history of type 2 diabetes, hypertension, bipolar disorder, and felt weak over the past few days before admission and noticed his elevated blood sugar, which he ascribed to poorly follow the dietary habits. He therefore called EMS, he now is found his blood sugar more than 500 and brought to the hospital. He was given IV fluids. His BP was then 190/100 and he was admitted for further evaluation . His initial temperature was 98, pulse 70, and BP 200/98 which came down to 130/60 after treatment. The overall exam was not particularly remarkable. The abdomen was not distended or tender. White cell count was 2.3, hemoglobin 13, platelets 167 and then [id number]. Patient was given Abilify, dextrose IV, Glucotrol , insulin, lisinopril, melatonin, metformin and Zosyn. Currently, he is feeling improved. He denies any headaches, no visual symptoms, sore throat, odynophagia, dysphagia, no dyspnea, no abdominal pain. He did have what he describes as abdominal cramps in the upper abdomen close to the epigastric area , but those have resolved. No diarrhea, no genitourinary symptoms, no joint symptoms. No neurological symptoms. PAST MEDICAL HISTORY: Type 2 diabetes, hypertension, hyperlipidemia, bipolar disorder, chronic low back pain. PAST SURGICAL HISTORY: Negative. FAMILY HISTORY: Noncontributory. SOCIAL HISTORY: Lives in the area with family, smokes daily, does not drink alcoholic beverages. ALLERGIES: Negative. MEDICATION LIST: We have listed above his meds currently. PHYSICAL EXAMINATION: VITAL SIGNS: Temperature max 98.4, blood pressure 120/70, pulse 95, respirations 18. SKIN: Without any areas of skin breakdown. Patient is voiding in the toilet. He has no lymphadenopathy and has a peripheral IV access. HEENT: Ocular movements are conjugate. Pupils are equal. Oral cavity moist, a few missing teeth. NECK: Supple, without jugular vein distention. LUNGS: Symmetric air entry, no wheezing. HEART: S1, S2, regular rate. ABDOMEN: Not distended, soft without any obvious tenderness. Bowel sounds are present. No bladder distention, no organomegaly. EXTREMITIES: Patient is able to move extremities equally. No joint inflammatory process noted. No edema. Pulses are 1+ in dorsalis pedis. Plantar responses are flexor. NEUROLOGIC: No clonus. His cognitive function appears to be intact. He is oriented, knows his name, follows commands. LABORATORY DATA: White cell count 2.2 down to 1.3, hemoglobin down from 13 to 11, platelets down from 167 to 60,000. There is some monocytosis. INR 1.2. Chemistry with sodium 132, creatinine 0.92 and now sodium 138, creatinine 1.05. The bilirubin 0.6, albumin 3.8, AST 136, ALT 59, and alkaline phosphatase 71. Patient had a positive hepatitis C antibody. Reports include abdomen ultrasound which demonstrated sonographic findings indicate possible cholecystitis and hepatosplenomegaly. ASSESSMENT: 1. Type 2 diabetes, poorly controlled. 2. Weakness. 3. Chronic hepatitis C, probably newly diagnosed. 4. Liver cirrhosis, most likely secondary to chronic hepatitis C yet untreated. 5. Abnormalities in the gallbladder area on ultrasound without an obvious or clear-cut clinical correlate. DISCUSSION: The most likely scenario is a poor control of diabetes with symptoms related by the patient. In addition to that, he has undiagnosed chronic liver disease with likely cirrhosis and pancytopenia due to hypersplenism associated with portal hypertension. This is likely secondary to chronic hepatitis C. He will need assessment for that and eventual involvement in treatment for hepatitis C to prevent further progression of liver disease and we will initiate the workup here in preparation for outpatient treatment. The findings in the gallbladder clinically do not have correlate that would indicate an acute inflammatory process and I believe that Surgical consultation has been obtained although does not look like he would require surgical intervention. [facility]
[2018-03-19 12:17] LABS: ANA Symphony (Qualitative) Negative (Negative); EliA RAS New Method **** NEW METHOD ****; dsDNA IgG Antibody 6.6 IU/mL (<10 Negative)
[2018-03-19 12:47] LABS: EliA Vaculitis New Method **** NEW METHOD ****; Mitochondrial Ab 1.1 U/mL (<4 Negative)
[2018-03-19 13:11] LABS: Hep B Surface AG-Rflx Sendout Negative (Negative); Hepatitis B Core IgM AB Negative (Negative); Hepatitis B Core Total Negative (Negative); Hepatitis B Surface AB-Sendout Non Reactive (.)
[2018-03-19 15:15] LABS: A/G Ratio 0.8 (0.7-1.7); Albumin 2.9 g/dL (2.9-4.4); Alpha 1 0.2 g/dL (0.0-0.4); Alpha 2 0.5 g/dL (0.4-1.0); Beta 0.9 g/dL (0.7-1.3); Gamma 1.9 g/dL (0.4-1.8); Globulin, Total 3.5 g/dL (2.2-3.9); M-Spike Not Observed g/dL (Not Observed); Protein Electrophoresis Intrp Note: (.)
== END 2018-03-18 17:21 | disposition home or self-care (01) | DRG 638 ==
LOC: ERS 18:02 → 2SW 22:22 → OBSVTOIN 03-12 17:07 → IMCU/EMU 03-12 20:47 → T4-B 03-13 10:23
PROVIDERS: ADMIT Internal Medicine; ATTEND Internal Medicine
DX: E11.10 Type 2 diabetes mellitus with ketoacidosis without coma (principal); E87.1 Hypo-osmolality and hyponatremia; D61.818 Other pancytopenia; K76.6 Portal hypertension; B18.1 Chronic viral hepatitis B without delta-agent; I10 Essential (primary) hypertension; G89.29 Other chronic pain; M54.9 Dorsalgia, unspecified; Z91.11 Patient's noncompliance with dietary regimen; E78.5 Hyperlipidemia, unspecified; F32.9 Major depressive disorder, single episode, unspecified; D72.819 Decreased white blood cell count, unspecified; B18.2 Chronic viral hepatitis C; D73.1 Hypersplenism; K70.30 Alcoholic cirrhosis of liver without ascites; F10.10 Alcohol abuse, uncomplicated; F41.9 Anxiety disorder, unspecified; F17.210 Nicotine dependence, cigarettes, uncomplicated
CPT/HCPCS: 36415; 36416; 71045; 76700; 80048; 80053; 80061; 80306; 81003; 81015; 82010; 82103; 82330; 82390; 82436; 82553; 82728; 82803; 82947; 83036; 83516; 83520; 83540; 83550; 83605; 83690; 83880; 84133; 84165; 84300; 84484; 85025; 85046; 85060; 85610; 86038; 86225; 86704; 86705; 86706; 86707; 86803; 87340; 87350; 87522; 93005; J1815; J2543; J7050

== ENCOUNTER 2018-09-19 10:23 | Outpatient (CLI) | payer MEDICARE, MEDICAID ==
--- NOTE | 2018-09-19 10:37 | RAD ---
LEFT SHOULDER THREE VIEWS: History: Left shoulder pain. FINDINGS/IMPRESSION: There are degenerative changes in the acromioclavicular joint. No acute fracture, dislocation or bony destruction is seen. POS: [facility]
== END 2018-09-19 10:24 | disposition home or self-care (01) ==
LOC: RAD-FRANK 10:23
PROVIDERS: ATTEND Internal Medicine
DX: M25.512 Pain in left shoulder (principal); M19.011 Primary osteoarthritis, right shoulder

== ENCOUNTER 2019-07-10 09:23 | Outpatient (CLI) | payer MEDICARE, MEDICAID ==
--- NOTE | 2019-07-10 10:46 | ULT ---
HEPATIC ULTRASOUND WITH POWER SCALE AND COLOR FLOW AND SPECTRAL DOPPLER IMAGING: Date: 07/10/2019 HISTORY: Abnormal LFTs, hepatitis C. FINDINGS: The liver demonstrates coarse and heterogeneous echogenicity without focal mass or intrahepatic ducta l dilatation. The margins are irregular. The gallbladder is contracted (patient ate). No shadowing ga llstones are seen. Gallbladder wall is at upper limits of normal in thickening measuring up to 3.0 mm . The common duct measures 5.0 mm in diameter. The visualized portions of the pancreas are grossly un remarkable. No free fluid is seen. There is normal flow and spectral waveforms in the hepatic, portal veins, and splenic vasculature. IMPRESSION: Findings are suspicious for cirrhosis of the liver. Further evaluation with CT scan is recommended (w ith and without IV contrast using the liver mass protocol). POS: [facility]
== END 2019-07-10 09:24 | disposition home or self-care (01) ==
LOC: BICULT 09:23
PROVIDERS: ATTEND Physician Assistant Medical
DX: B18.2 Chronic viral hepatitis C (principal); R94.5 Abnormal results of liver function studies; K74.60 Unspecified cirrhosis of liver; Z13.810 Encounter for screening for upper gastrointestinal disorder; Z12.11 Encounter for screening for malignant neoplasm of colon
CPT/HCPCS: 76705; 80053; 82248; 82607; 82746; 83615; 84100; 84165; 84550

== ENCOUNTER 2019-10-08 11:00 | Outpatient (CLI) | payer MEDICARE, MEDICAID | END 2019-10-08 11:01 | disposition home or self-care (01) | LOC: DTY/OP 11:00 | PROVIDERS: ATTEND Internal Medicine | DX: E66.3 Overweight (principal); E11.65 Type 2 diabetes mellitus with hyperglycemia; I10 Essential (primary) hypertension; Z79.899 Other long term (current) drug therapy | CPT/HCPCS: 97802 ==

== ENCOUNTER 2020-06-01 16:14 | Emergency (ER) | payer MEDICARE, MEDICAID ==
--- NOTE | 2020-06-01 17:24 | RAD ---
XR Wrist 3 Rt View STANDARD History: Trauma Comparison: None. Findings: No acute fracture or malalignment. Mild elongation of the ulnar styloid process. Erosions o f the lateral margin of the lunate at the scapholunate interval. No acute osseous abnormality. Impression: Chronic findings. No acute osseous abnormality.
--- NOTE | 2020-06-01 17:25 | RAD ---
XR Hand Rt 3 View STANDARD History: Trauma Comparison: None. Findings: Mild elongation ulnar styloid process. No acute space fracture or malalignment. Likely an old injury of the fifth metacarpal neck. Impression: Likely old injury of the fifth metacarpal neck. No acute underlying displaced fracture is appreciated.
[2020-06-01 17:27] LABS: #Eosinphils 0.1 thou/uL (0.0-0.7); #Lymphocytes 0.8 thou/uL (1.20-3.40); #Monocytes 0.3 thou/uL (0.11-0.59); #Neutrophils 2.3 thou/uL (1.40-6.50); %Basophils 1.3 % (0.0-1.0); %Eosinophils 3.3 % (0.0-10.0); %Lymphocytes 22.9 % (21.0-51.0); %Monocytes 6.9 % (0.0-10.0); %Neutrophils 65.6 % (42.0-75.0); Hemoglobin 12.8 g/dL (14.0-18.0); Mean Corpuscular HGB CONC 33.5 g/dL (32.0-36.0); Mean Corpuscular Hemoglobin 30.1 pg (27.0-31.0); Mean Corpuscular Volume 89.8 fL (78.0-98.0); Mean Platelet Volume 9.1 fL (7.4-10.4); Platelet Count 83 thou/uL (130-400); RBC Distribution Width 13.5 % (11.5-14.5); Red Blood Cell (RBC) Count 4.24 mill/uL (4.70-6.10); White Blood Cell (WBC) Count 3.6 thou/uL (4.8-10.8)
[2020-06-01 17:29] LABS: Amphetamine Not Detected (NotDetected); Barbiturates Screen Not Detected (NotDetected); Benzodiazepine Screen Not Detected (NotDetected); Cocaine Metabolite Screen Detected (NotDetected); Medtox Reader # READER 4; Methadone Not Detected (NotDetected); Methamphetamine Not Detected (NotDetected); Opiate Screen Detected (NotDetected); Oxycodone Screen Not Detected (NotDetected); Phencyclidine (PCP) Not Detected (NotDetected); THC/Cannabinoid Screen Detected (NotDetected); Tricyclic Screen Not Detected (NotDetected)
[2020-06-01 17:30] LABS: Medtox Control Line Valid? VALID (VALID)
[2020-06-01 17:42] LABS: Acetaminophen Less than 6.0 mcg/mL (10.0-30.0); Alcohol Less than 10 mg/dL (Less than 10); CK (CPK) 1130 U/L (30-200); Salicylate Less than 8.0 mg/dL (15.0-30.0)
[2020-06-01 17:43] LABS: ALT (SGPT) 99 U/L (8-55); AST (SGOT) 152 U/L (5-34); Albumin 3.4 g/dL (3.4-4.8); Alkaline Phosphatase 122 U/L (40-110); Anion Gap 10 mmol/L (10-20); BUN (Urea Nitrogen) 15 mg/dL (8.4-25.7); Calc. Creatinine Clearance 0 mL/min (70-130); Calcium 8.7 mg/dL (7.8-10.44); Carbon Dioxide 23 mmol/L (23-31); Chloride 109 mmol/L (98-107); Globulin 5.1 g/dL (2.4-3.5); Potassium 4.1 mmol/L (3.5-5.1); Protein, Total 8.5 g/dL (5.8-8.1); Sodium 138 mmol/L (136-145)
[2020-06-01] MEDS ORDERED: Ziprasidone 20 MG CAP ONE (17:47)
[2020-06-01 17:55] LABS: Glucose 56 mg/dL (80-115)
[2020-06-01 18:57] LABS: SARS-CoV-2 NAA Rapid Test Not Detected (NotDetected)
== END 2020-06-02 13:35 | disposition home or self-care (01) ==
LOC: ERS 16:14
DX: S62.316A Displaced fracture of base of fifth metacarpal bone, right hand, initial encounter for closed fracture (principal); F23 Brief psychotic disorder; F17.210 Nicotine dependence, cigarettes, uncomplicated; Z79.899 Other long term (current) drug therapy; W19.XXXA Unspecified fall, initial encounter
CPT/HCPCS: 0240U; 73110; 73130; 80306; 80307; 82550; 82962; 93005; 26600; 36415; 36416; 80053; 84443; 85025

== ENCOUNTER 2020-08-06 08:23 | Outpatient (CLI) | payer MEDICARE, MEDICAID | END 2020-08-06 08:24 | disposition home or self-care (01) | LOC: BICULT 08:23 | PROVIDERS: ATTEND Physician Assistant Medical | DX: K74.60 Unspecified cirrhosis of liver (principal); B18.2 Chronic viral hepatitis C; I85.00 Esophageal varices without bleeding; K76.89 Other specified diseases of liver; R16.1 Splenomegaly, not elsewhere classified; K76.6 Portal hypertension | CPT/HCPCS: 76705 ==

== ENCOUNTER 2020-08-13 08:51 | Outpatient (CLI) | payer MEDICARE, MEDICAID ==
[2020-08-13] MEDS ORDERED: Iopamidol 370 76% 100 ML VIAL ONE (12:03)
== END 2020-08-13 08:52 | disposition home or self-care (01) ==
LOC: CT 08:51
PROVIDERS: ATTEND Internal Medicine Medical Oncology
DX: R59.0 Localized enlarged lymph nodes (principal); D69.6 Thrombocytopenia, unspecified; M89.9 Disorder of bone, unspecified; K76.6 Portal hypertension; K74.60 Unspecified cirrhosis of liver
CPT/HCPCS: 70491; 71260; 74177; Q9967

== ENCOUNTER 2020-08-24 08:37 | Outpatient (CLI) | payer MEDICARE, MEDICAID ==
[2020-08-24 16:31] LABS: SARS-CoV-2 PCR by NAA Not Detected (NotDetected)
== END 2020-08-24 08:38 | disposition home or self-care (01) ==
LOC: LABBT 08:37
PROVIDERS: ATTEND Specialist
DX: Z01.818 Encounter for other preprocedural examination (principal); Z20.822 Contact with and (suspected) exposure to COVID-19; E11.9 Type 2 diabetes mellitus without complications; F20.9 Schizophrenia, unspecified; Z79.4 Long term (current) use of insulin
CPT/HCPCS: 93005; U0003; U0005; 87635; 93010

== ENCOUNTER 2020-08-27 05:55 | Day surgery (SDC) | payer MEDICARE, MEDICAID ==
[2020-08-26 13:54] VITALS: BMI 27.1
[2020-08-27] MEDS ORDERED: Lidocaine 1% w/Epinephrine 1:100K 20 ML VIAL ONE (06:37)
[2020-08-27] MEDS ORDERED: Bupivacaine PF 0.5% 30 ML VIAL ONE (06:37)
[2020-08-27] MEDS ORDERED: Fentanyl 100 MCG/2 ML VIAL ONE (06:55)
[2020-08-27] MEDS ORDERED: Acetaminophen 500 MG TAB ONE (07:02)
[2020-08-27] MEDS ORDERED: CEFAZOLIN 1 GM VIAL ONE (07:02)
[2020-08-27] MEDS ORDERED: Sodium Chloride 0.9% 100 ML ONE (07:02)
[2020-08-27] MEDS ORDERED: Ketorolac Tromethamine 30 MG/ML VIAL ONE (07:02)
[2020-08-27] MEDS ORDERED: Ondansetron ODT 4 MG TAB ONE (07:12)
[2020-08-27] MEDS ORDERED: Midazolam HCl 2 mg/2 ml Vial ONE (07:12)
[2020-08-27] MEDS ORDERED: PROPOFOL 200 MG/20 ML VIAL ONE (07:39)
[2020-08-27] MEDS ORDERED: Ondansetron PF 4 MG/2 ML Vial ONE (07:39)
[2020-08-27] MEDS ORDERED: Lidocaine 1% PF 5 ML VIAL ONE (07:39)
[2020-08-27] MEDS ORDERED: Dexamethasone 20 MG/5 ML VIAL ONE (07:39)
[2020-08-27] MEDS ORDERED: hydrALAZINE 20 MG/ML VIAL ONE (08:54)
== END 2020-08-27 10:30 | disposition home or self-care (01) ==
LOC: SDC 05:55
PROVIDERS: ATTEND Specialist
PROC: 07B53ZX Excision of Right Axillary Lymphatic, Percutaneous Approach, Diagnostic (ICD-10-PCS; principal; 2020-08-27)
DX: R59.0 Localized enlarged lymph nodes (principal); K74.60 Unspecified cirrhosis of liver; E11.9 Type 2 diabetes mellitus without complications; F20.9 Schizophrenia, unspecified; Z79.4 Long term (current) use of insulin; Z79.899 Other long term (current) drug therapy; Z87.891 Personal history of nicotine dependence
CPT/HCPCS: 36416; 88184; 88307; 88341; 88342; J0360; J0690; J1100; J1885; J2250; J2405; J2704; J3010; J3490; Q0162; S0020

== ENCOUNTER 2020-11-13 10:41 | Emergency (ER) | payer MEDICARE, MEDICAID ==
[2020-11-13 11:28] LABS: Hemoglobin 11.9 g/dL (14.0-18.0); Mean Corpuscular HGB CONC 32.4 g/dL (32.0-36.0); Mean Corpuscular Volume 92.6 fL (78.0-98.0); RBC Distribution Width 13.5 % (11.5-14.5); Red Blood Cell (RBC) Count 3.95 mill/uL (4.70-6.10); White Blood Cell (WBC) Count 2.7 thou/uL (4.8-10.8)
[2020-11-13 11:29] LABS: Bacteria/HPF None Seen HPF (None Seen); Bilirubin Negative (Negative); Blood, Urine 2+ (Negative); Clarity Clear (Clear); Glucose, Urine (Dipstick) Normal (Negative); Ketone, Urine Negative (Negative); Leukocyte Negative Leu/uL (Negative); Nitrite Negative (Negative); Protein, Urine (Dipstick) 20 mg/dL (Neg-Trace); Specific Gravity, Urine 1.028 (1.002-1.036); Squamous Epithelial None Seen HPF (0-3); Urobilinogen Normal mg/dL (Less than 2); WBC/HPF 0-3 HPF (0-3)
[2020-11-13 11:37] LABS: Amphetamine Detected (NotDetected); Barbiturates Screen Not Detected (NotDetected); Benzodiazepine Screen Not Detected (NotDetected); Cocaine Metabolite Screen Detected (NotDetected); Methadone Not Detected (NotDetected); Methamphetamine Detected (NotDetected); Opiate Screen Not Detected (NotDetected); Oxycodone Screen Not Detected (NotDetected); Phencyclidine (PCP) Not Detected (NotDetected); THC/Cannabinoid Screen Detected (NotDetected); Tricyclic Screen Not Detected (NotDetected)
[2020-11-13 11:48] LABS: #Eosinphils 0.1 thou/uL (0.0-0.7); #Lymphocytes 0.5 thou/uL (1.20-3.40); #Monocytes 0.2 thou/uL (0.11-0.59); %Basophils 0.3 % (0.0-1.0); %Eosinophils 2.2 % (0.0-10.0); %Lymphocytes 17.1 % (21.0-51.0); %Monocytes 6.7 % (0.0-10.0); %Neutrophils 73.6 % (42.0-75.0); MDiff Complete? YES; Mean Platelet Volume 10.1 fL (7.4-10.4); Platelet Count 64 thou/uL (130-400); Platelet Morphology Comment Appears Decreased; Polychromasia SLIGHT = 2-3 cells (100X) (0-2/hpf)
[2020-11-13 12:12] LABS: ALT (SGPT) 74 U/L (8-55); AST (SGOT) 122 U/L (5-34); Albumin 3.2 g/dL (3.4-4.8); Alkaline Phosphatase 132 U/L (40-110); Anion Gap 12 mmol/L (10-20); BUN (Urea Nitrogen) 15 mg/dL (8.4-25.7); Bilirubin, Total 2.2 mg/dL (0.2-1.2); Calc. Creatinine Clearance 0 mL/min (70-130); Calcium 8.7 mg/dL (7.8-10.44); Carbon Dioxide 22 mmol/L (23-31); Chloride 113 mmol/L (98-107); Globulin 4.5 g/dL (2.4-3.5); Glucose 81 mg/dL (80-115); Potassium 3.9 mmol/L (3.5-5.1); Protein, Total 7.7 g/dL (5.8-8.1); Sodium 143 mmol/L (136-145)
[2020-11-13 12:13] LABS: Acetaminophen Less than 6.0 mcg/mL (10.0-30.0); Alcohol Less than 10 mg/dL (Less than 10); Salicylate Less than 8.0 mg/dL (15.0-30.0)
== END 2020-11-14 00:14 | disposition home or self-care (01) ==
LOC: ERS 10:41
DX: F20.9 Schizophrenia, unspecified (principal); F15.10 Other stimulant abuse, uncomplicated; F14.10 Cocaine abuse, uncomplicated; F12.10 Cannabis abuse, uncomplicated; F17.210 Nicotine dependence, cigarettes, uncomplicated
CPT/HCPCS: 36415; 51701; 70450; 71045; 80053; 80306; 80307; 81003; 81015; 85025; 93005